=== PATIENT | male | born 1985 | race African-American/Black ===

== ENCOUNTER 2017-02-26 20:39 | Emergency (ER) | payer OTHER | END 2017-02-26 21:30 | disposition home or self-care (01) | LOC: ER1 20:39 | DX: Z53.21 Procedure and treatment not carried out due to patient leaving prior to being seen by health care provider (principal) | CPT/HCPCS: 93005 ==

== ENCOUNTER 2017-07-04 07:17 | Emergency (ER) | payer OTHER ==
[2017-07-04 08:17] LABS: HEMOGLOBIN 13.6 gm/dl (14.0-17.5); RED BLOOD COUNT 4.43 M/UL (4.20-5.50); WHITE BLOOD COUNT 3.7 K/UL (4.5-11.0)
[2017-07-04 08:42] LABS: BUN/CREATININE RATIO 19 (0-10)
== END 2017-07-04 11:58 | disposition home or self-care (01) ==
LOC: ER1 07:17
PROVIDERS: Physician Assistant
DX: S81.852A Open bite, left lower leg, initial encounter (principal); Z23 Encounter for immunization; W59.11XA Bitten by nonvenomous snake, initial encounter
CPT/HCPCS: 36415; 80053; 82550; 82553; 83874; 84484; 85025; 85610; 85730; 90471; 90715; 99284